=== PATIENT | female | born 1985 | race Hispanic/Latino ===

== ENCOUNTER 2020-07-25 09:49 | Emergency (ER) | payer BC ==
[~2020-07-25] VITALS: Ht 162.6 cm; Wt 122.5 kg
--- NOTE | 2020-07-25 10:16 | NUR ---
DR. ALEXANDER IN TRIAGE EVALUATING PATIENT NEUROLOGICAL STATUS AND SPEAKING WITH PATIENT EXTENSIVELY ABOUT PLAN OF CARE.
--- NOTE | 2020-07-25 10:28 | Emergency Department Note ---
History of Present Illnes History of Present Illness Chief Complaint: Extremity Trauma/Pain History of Present Illness This is a 35 year old female X 5 DAYS INTERMITTENT TINGLING IN RIGHT UPPER EXT. TODAY, 5 1/2 HRS AGO BEGAN HAVING CONTINUOUS TINGLING TO RIGHT CHEEK. POSITIVE NAUSEA. DENIES ANY CHEST PAIN OR SHORTNESS OF BREATH. SHE DOES FEEL ANXIOUS AND HAS BEEN DOING BREATHING EXERICSE AND SOMETIMES IT WORKS. BP 135/100. SHE STARTED METOPROLOL 50MG DAILY, 5 DAYS AGO. DENIES TRAUMA, BUT DID STATE 1 WEEK AGO HER FATHER FROM A HEART ATTACK AND SHE DID CPR ON HIM APPROX 10 MIN. Historian: Patient Arrival Mode: Car Additional Treatment VIDEO ARCADE MANAGER: NONE Solar Thermal Installer Required: No Onset (how long ago): day(s) (5) Location: RIGHT ARM AND CHEEK - HAS RESOLVED CURRENTLY Quality: TINGLING Radiation: Reports non-radiation Severity: mild Timing of current episode: intermittent Progression: resolved Chronicity: new Context: Denies recent illness Relieving factors: none Exacerbating factors: none Associated symptoms: Reports other (ANXIOUS) Past Medical/Family History Physician Review I have reviewed the patient's past medical and family history. Any updates have been documented here. Past Medical History Recent Fever: No Clinical Suspicion of Infectio: No New/Unexplained Change in Ment: No Past Medical History: Hypertension Other Surgery: BREAST IMPLANTS Social History Smoking Cessation: Never Smoker Counseling Performed: No Alcohol Use: Daily Any Illegal Drug Use: No TB Exposure/Symptoms: No Physically hurt or threatened: No Family History Family history of heart diseas: No Other Last Tetanus: UTD Any Pre-Existing Lines (PICC,: No Review of Systems Review of Systems Constitutional: Reports no symptoms EENTM: Reports no symptoms Cardiovascular: Reports other (SAW PCP FOR TACHYCARDIA 5 D AGO - METOPROLOL STARTED) Respiratory: Reports no symptoms Gastrointestinal: Reports no symptoms Genitourinary: Reports no symptoms Musculoskeletal: Reports no symptoms Integumentary: Reports no symptoms Neurological: Reports as per HPI, Reports paresthesia Psychological: Reports no symptoms Endocrine: Reports no symptoms Hematological/Lymphatic: Reports no symptoms Physical Exam Related Data Allergies: Coded Allergies: No Known Allergies (Unverified , 07/25/20) Triage Vital Signs Vital Signs Date Time Temp Pulse Resp B/P (MAP) Pulse Ox O2 Delivery O2 Flow Rate FiO2 07/25/20 09:56 97.9 76 18 135/100 99 Room Air Vital signs reviewed: Yes Physical Exam CONSTITUTIONAL Constitutional: Present well-developed, Present well-nourished HENT HENT: Present normocephalic, Present atraumatic, Present oropharynx clear/mois t, Present nose normal HENT L/R: Present left ext ear normal, Present right ext ear normal EYES Eyes: Reports PERRL, Reports conjunctivae normal NECK Neck: Present ROM normal PULMONARY Pulmonary: Present effort normal, Present breath sounds normal CARDIOVASCULAR Cardiovascular: Present regular rhythm, Present heart sounds normal, Present capillary refill normal, Present normal rate GASTROINTESTINAL Abdominal: Present soft, Present nontender, Present bowel sounds normal GENITOURINARY Genitourinary: Present exam deferred SKIN Skin: Present warm, Present dry MUSCULOSKELETAL Musculoskeletal: Present ROM normal NEUROLOGICAL Neurological: Present alert, Present oriented x 3, Present DTRs normal, Present no gross motor or sensory deficits; Absent cranial nerve deficit, Absent sensory deficit, Absent abnormal coordination, Absent abnormal gait, Absent weakness PSYCHOLOGICAL Psychological: Present mood/affect normal, Present judgement normal Assessment & Plan Medical Decision Making MDM PT ANXIOUS DUE TO 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 SAW PCP 5 DAYS AGO - LABS INCLUDING HGB A1C, CBC, CHEM, TSH, UA ALL NORMAL, EXAM COMPLETELY NORMAL. NO SI/HI, HAS GOOD SUPPORT AT HOME AND IN AREA Reassessment Reassessment I REASSURED PT THAT SHE IS NOT HAVING A STROKE AND SHE WAS QUITE RELIEVED. SHE IS HAVING INSOMNIA, WAKES UP SEVERAL TIMES A NIGHT FROM N[place]ES DUE TO INCIDENT - WILL GIVE HYDROXYZINE PRN QHS TO HELP, ADVISED LIGHT EXERCISE TO HELP WITH STRESS AND DRINKING PLENTY OF FLUIDS, F/U PCP Assessment & Plan Final Impression: (1) Anxiety (2) Insomnia Last Vital Signs Date Time Temp Pulse Resp B/P (MAP) Pulse Ox O2 Delivery O2 Flow Rate FiO2 07/25/20 09:56 97.9 76 18 135/100 99 Room Air Home Meds No Active Prescriptions or Reported Meds YARI ALEXANDER MD Jul 25, 2020 10:28
--- OUTSIDE RECORDS SUMMARY | 2020-07-25 10:28 | XMS REPORT | Clinical Summary ---
Author Author [facility] Organization [facility] Address Unknown Phone Unavailable Care Team Providers Care Wheel Assembler Name Role Phone Asked, No Pcp PCP Unavailable Allergies Comments Active Allergy Reactions Severity Noted Date No Known Drug Allergies 09/26/2016 Medications End Date Status Medication Sig Dispensed Refills Start Date Active azithromycin (ZITHROMAX) 5 250 MG tablet 6 Active cephalexin (KEFLEX) 500 0 MG capsule 7 Active desoximetasone (TOPICORT) 0 0.05 % cream 7 Active Problems Problem Noted Date Calculus of kidney 09/26/2016 Migraine 09/26/2016 Medical History Medical History Date Comments Kidney stone 09/11/2010 Herpes 09/11/2011 Calculus of kidney 09/26/2016 Migraine 09/26/2016 Family History Medical History Relation Name Comments Colon cancer Maternal Grandmother Relation Name Status Comments Maternal Grandmother Social History Date Tobacco Use Types Packs/Day Years Used Never Smoker Tobacco Cessation: Counseling Given: No Drinks/Week oz/Week Comments Alcohol Use 2 Shots of liquor Yes Sex Assigned at Date Recorded Not on file Last Filed Vital Signs Not on file Plan of Treatment Health Maintenance Due Date Last Done Comments CERVICAL CANCER SCREENING 2004 INFLUENZA VACCINE 04/11/2020 07/12/2015 Results Not on fileafter 07/25/2019 Insurance Type Payer Benefit Subscriber ID Effective Phone Address Plan / Dates Group PPO BCBS BCBS [id number] TONA resnadia PPO/TAQUERIA ERWIN PPO Advance Directives For more information, please contact: [phone] Patient Weight Inspector Explanation Type Date Recorded Advance Directives, Living Will and Medical Power of Surgical Supply Assistant
--- OUTSIDE RECORDS SUMMARY | 2020-07-25 10:29 | XMS REPORT | Continuity of Care Document ---
Author Author [facility] t Organization [facility] Address [address] [place] [address] Phone Unavailable Care Team Providers Care Gas Appliance Servicer Name Role Phone HELD, I UNIQUE PCP Unavailable THOMAS ISSA, LISHA Attphys Unavailable Thomas Issa RN, Lisha Attphys Unavailable Payers Payer Name Policy Type Policy Number Effective Date Expiration Date S ource [place] POS [id number] 2014 00:00:00 Problems Condition Name Condition Details Condition Category Status Onset Date Resolution Date Last Treatment Date Treating Clinician Comments Source Body mass index 40+ - severely obese Body Mass Index 40+ - S everely Obese Problem Active 2020-03-25 00:00:00 [facility] Morbid obesity Morbid Obesity Problem Active 2020-03-18 00:00:00 [facility] Calculus of kidney Calculus of kidney Disease Active 2016-09-26 00:00:0 0 Ramiro Lazaro Migraine Migraine Disease Active 2016-09-26 00:00:00 Ramiro Lazaro Kidney stone Kidney Stone Problem Active 2014-09-11 00:00:00 [facility] Allergies, Adverse Reactions, Alerts This patient has no known allergies or adverse reactions. Family History Family Member Diagnosis Comments Start Date Stop Date Source Maternal grandmother Colon cancer [facility] Lazaro Social History Social Habit Start Date Stop Date Quantity Comments Source Sex Assigned At MD Orozco Alcohol intake 2016-09-26 00:00:00 2016-09-26 00:00:00 Current drinker of alcohol (finding) Ramiro Lazaro Smoking Status Start Date Stop Date Source Never smoker [facility]amiro [facility] Medications Ordered Medication Name Filled Medication Name Start Date Stop Da te Current Medication? Ordering Clinician Indication Dosage Frequency Signature (SIG) Comments Components Source desoximetasone (TOPICORT) 0.05 % cream 2016-09-23 00:00:00 Yes Ramiro Lazaro cephalexin (KEFLEX) 500 MG capsule 2016-09-21 00:00:00 Yes Ramiro Lazaro azithromycin (ZITHROMAX) 250 MG tablet 2016-08-17 00:00:00 Yes Ramiro Isabelist Flucelvax Quad (PF) 60 mcg (15 mcg x 4)/0.5 mL IM syringe Flucelvax Quad (PF) 60 mcg (15 mcg x 4)/0.5 mL IM syringe No Flucelvax Quad (PF) 60 mcg (15 mcg x 4)/0.5 mL IM syringe [facility] metoprolol succinate ER 50 mg tablet,ext ended release 24 hr Take 1 tablet every day by oral route for 30 days. metoprolol succinate ER 50 mg tablet,ext ended release 24 hr Take 1 tablet every day by oral route for 30 days. No 1 Q1D metoprolol succinate ER 50 mg tablet,ext ended release 24 hr Take 1 tablet every day by oral route for 30 days. Cristhian odom [facility] Retin-A Micro Pump 0.08 % topical gel Ap ply 1 application every week by topical route for 30 days. Retin-A Micro Pump 0.08 % topical gel Ap ply 1 application every week by topical route for 30 days. No Retin-A Micro Pump 0.08 % topical gel Apply 1 application every week by topical route for 30 days. [facility] Vitamin D3 5000 iu Vitamin D3 5000 iu No Vi tamin D3 5000 iu [facility] Immunizations Ordered Immunization Name Filled Immunization Name Date Status Comments Source influenza, injectable, quadrivalent influenza, injectable, q uadrivalent 2020-06-27 00:00:00 [facility] 2020-03-18 11:59:00 Completed Kg bower [facility] influenza, injectable, quadrivalent influenza, injectable, q uadrivalent 2019-06-11 00:00:00 [facility] Vital Signs Vital Name Observation Time Observation Value Comments Source BP Diastolic 2020-07-22 00:00:00 80 mm[Hg] [facility] Height 2020-07-22 00:00:00 64 [in_i] [facility] BMI (Body Mass Index) 2020-07-22 00:00:00 51.8 kg/m2 [facility] BP Systolic 2020-07-22 00:00:00 119 mm[Hg] [facility] Body Weight 2020-07-22 00:00:00 301.8 [lb_av] [facility] BP Diastolic 2020-03-18 00:00:00 84 mm[Hg] [facility] Height 2020-03-18 00:00:00 64 [in_i] [facility] BMI (Body Mass Index) 2020-03-18 00:00:00 53.5 kg/m2 [facility] BP Systolic 2020-03-18 00:00:00 126 mm[Hg] [facility] Body Weight 2020-03-18 00:00:00 311.8 [lb_av] [facility] Systolic blood pressure 2020-03-11 15:44:00 131 mm[Hg] MD Orozco Diastolic blood pressure 2020-03-11 15:44:00 87 mm[Hg] MD Orozco Heart rate 2020-03-11 15:44:00 87 /min MD Casillas son Body temperature 2020-03-11 15:44:00 36.56 Zahra MD Abhinav murrietaon Respiratory rate 2020-03-11 15:44:00 18 /min MD Abhinav oakley Oxygen saturation in Arterial blood by Pulse oximetry 03-11 15:44:00 100 /min MD Orozco Procedures Procedure Date / Time Performed Performing Clinician Sourc e electrocardiogram 2020-07-22 00:00:00 [facility] HC 2019-NCOV COVID-19 2020-03-11 15:50:00 Nu Hawkins MD Breast Surgery 2007-09-11 00:00:00 [facility] Tonsillectomy 1997-09-11 00:00:00 [facility] Plan of Care Planned Activity Planned Date Details Comments Source Diagnostic Test Pending 2020-07-22 00:00:00 CBC w/ auto diff [code = CBC w/ auto diff] [facility] Diagnostic Test Pending 2020-07-22 00:00:00 CMP, serum or pl asma [code = CMP, serum or plasma] [facility] Diagnostic Test Pending 2020-07-22 00:00:00 TSH, serum or pl asma [code = TSH, serum or plasma] [facility] Diagnostic Test Pending 2020-07-22 00:00:00 urinalysis, dips tick [code = urinalysis, dipstick] [facility] Diagnostic Test Pending 2020-07-22 00:00:00 lipid panel, ser um [code = lipid panel, serum] [facility] Diagnostic Test Pending 2020-07-22 00:00:00 HbA1c (hemoglobi n A1c), blood [code = HbA1c (hemoglobin A1c), blood] [facility] Future Scheduled Test 2020-04-11 00:00:00 INFLUENZA VACCINE [code = INFLUENZA VACCINE] [facility] Future Scheduled Test 2004 00:00:00 Screening for chetna gnant neoplasm of cervix (procedure) [code = 754892981] [facility] Encounters Start Date/Time End Date/Time Encounter Type Admission Type Attendi [facility] Care Department Encounter ID Source 2020-07-22 00:00:00 2020-07-22 00:00:00 Sammy mack MD: [id number], [address], [place] [address], Ph. [facility]ER[facility] [id number] [facility] 2020-03-18 00:00:00 2020-03-18 00:00:00 Sammy mack MD: [id number], [place] [address], Ph. [facility] [id number] [facility] 2020-03-11 10:35:14 2020-03-11 10:53:27 Outpatient LISHA REIS MDA, MDA [id number] MD Orozco 2020-03-11 00:00:00 2020-03-11 00:00:00 Outpatient NETTE PERDUE [id number] MD Orozco 2020-01-16 07:15:00 2020-01-16 07:15:[address] Results Test Description Test Time Test Comments Results Result Comments Source Urinalysis macro (dipstick) panel - Urine 2020-07-22 13:05:0 0 Test Item Color Color (test code = Color Color) yellow Color Appearance (test code = Color Appearance) clear Color Glucose (test code = Color Glucose) negative Color Bilirubin (test code = Color Bilirubin) negative Color Ketones (test code = Color Ketones) trace Color Specific [place] (test code = Color Specific [place]) 1.025 Color Blood (test code = Color Blood) trace Color PH (test code = Color PH) 7.0 Color Protein (test code = Color Protein) negative Color Urobilinogen (test code = Color Urobilinogen) 0.2 Color Nitrites (test code = Color Nitrites) negative Color Leukocytes (test code = Color Leukocytes) negative [facility] W Auto Differential panel - [id number] 12:07:00 * Test Item Value Reference Range Interpretation Comments WBC (test code = WBC) 9.92 x10*3/?L 3.98-10.04 RBC (test code = RBC) 4.65 10*12/L 3.93-5.22 hemoglobin (test code = hemoglobin) 12.00 g/dL 11.20-15.70 hematocrit (test code = hematocrit) 39.1 % 34.1-44.9 MCV (test code = MCV) 84.1 fL 80.0-100.0 MCH (test code = MCH) 25.8 pg 25.6-32.2 MCHC (test code = MCHC) 30.7 g/dL 32.2-35.5 L RDW-SD (test code = RDW-SD) 49.6 fL 36.4-46.3 H platelet count (test code = platelet count) 312.0 k/uL 182.0-369. 0 MPV (test code = MPV) 10.3 fL 7.5-11.5 neut% (test code = neut%) 56.7 % 34.0-71.1 lymph% (test code = lymph%) 34.9 % 19.3-51.7 mon% (test code = mon%) 5.9 % 4.7-12.5 eos% (test code = eos%) 1.8 % 0.7-5.8 baso% (test code = baso%) 0.7 % 0.1-1.2 neut# (test code = neut#) 5.6 x10*3/?L 1.6-6.1 lymph# (test code = lymph#) 3.5 x10*3/?L 1.2-3.7 mon# (test code = mon#) 0.6 x10*3/?L 0.2-0.9 eos# (test code = eos#) 0.18 x10*3/?L 0.04-0.36 baso# (test code = baso#) 0.07 x10*3/?L 0.01-0.08 [facility] RNA [Units/volume] (viral load) in Serum or Plasma by DODIE with probe [id number] 08:55:00* Test Item Value Reference Range Interpretation Comments hepatitis C antibody (test code = hepatitis C antibody) non- reactive non-reactive signal to cut-off (test code = signal to cut-off) 0.03 <1.0 0 [facility] 1999 [facility] - Serum or Plasma 2020-03-18 17:49:00* Test Item Value Reference Range Interpretation Comments ALT (test code = ALT) 25 U/L 0-55 AST (test code = AST) 17 U/L 5-34 BUN (test code = BUN) 9.7 mg/dL 7.0-25.0 alk phos (test code = alk phos) 74 unit/L 40-150 glucose (test code = glucose) 90 mg/dL 70-99 albumin (test code = albumin) 3.5 g/dL 3.4-5.1 creatinine (test code = creatinine) 0.58 mg/dL 0.57-1.11 eGFR non- (test code = eGFR non-) > 60 total bilirubin (test code = total bilirubin) 0.3 mg/dL 0.2-1.2 eGFR - (test code = eGFR - ) >60 sodium (test code = sodium) 140 mEq/L 135-145 potassium (test code = potassium) 4.1 mEq/L 3.5-5.3 chloride (test code = chloride) 107 mmol/L 98-110 total protein (test code = total protein) 6.9 g/dL 6.1-8.2 calcium (test code = calcium) 8.2 mg/dL 8.6-10.4 L CO2 (test code = CO2) 23.7 mmol/L 20.0-32.0 anion gap (test code = anion gap) 9 calc [facility] - Serum or [id number] 17:49:00* Test Item Value Reference Range Interpretation Comments HDL (test code = HDL) 50 mg/dL triglyceride (test code = triglyceride) 67 mg/dL <150 VLDL (calculated) (test code = VLDL (calculated)) 13 mg/dL cholesterol/HDL ratio (test code = cholesterol/HDL ratio) 3.5 mg/dL non-HDL cholesterol (calculated) (test code = non-HDL cholesterol (calculated)) 126 mg/dL <160 cholesterol (test code = cholesterol) 176 mg/dL <200 Cholesterol in LDL [Mass/volume] in Serum or Plasma (t est code = 2089-1) 113 mg/dL <130 [facility] [Units/volume] in Serum or [id number] 17:49:00* Test Item Value Reference Range Interpretation Comments TSH (test code = TSH) 1.970 uIU/mL 0.350-4.940 [facility] A[facility]c/Hemoglobin.total in [id number] 16:10:00* Test Item Value Reference Range Interpretation Comments Hemoglobin A1c/Hemoglobin.total in Blood (test code = 4548-4) 5.6 % 1.0-5.7 average blood glucose (calculated) (test code = average blood glucose (calculated)) 114 mg/dL [facility] Hospital[facility]ysis macro (dipstick) panel - [id number] 13:04:00* Test Item Value Reference Range Interpretation Comments Color Color (test code = Color Color) yellow Color Appearance (test code = Color Appearance) clear Color Glucose (test code = Color Glucose) negative Color Bilirubin (test code = Color Bilirubin) negative Color Ketones (test code = Color Ketones) negative Color Specific [place] (test code = Color Specific [place]) 1.025 Color Blood (test code = Color Blood) negative Color PH (test code = Color PH) 7.0 Color Protein (test code = Color Protein) negative Color Urobilinogen (test code = Color Urobilinogen) 0.2 Color Nitrites (test code = Color Nitrites) negative Color Leukocytes (test code = Color Leukocytes) negative [facility]MD COVID-19 (SARS-CoV-2) PCR [id number] 06:06:38* Test Item Value Reference Range Interpretation Comments COVID19 SARS Result (test code = 22707-2) Not Detected Not Detected COVID19 SARS Interpretation (test code = 83908) SARS-C oV-2 NOT Detected. Reference Range: Not Detected Methodology: The [employer] RealTime SARS-CoV-2 assay is a qualitative real-time reverse surg tech polymerase chain reaction (nitro man- PCR) test to detect RNA from SARS-CoV-2 in nasal, nasopharyngeal and oropharyngeal swabs from patients with signs and symptoms of infection who are suspected of COVID-19 by their health care provider. The [employer] RealTime SARS-CoV-2 performed on the [employer] System is a dual target assay with primers and probes for the RdRp and N genes. Results must be interpreted within the context of all relevant clinical and laboratory findings, and epidemiological risk factors. Positive results are indicative of the presence of SARS-CoV-2 RNA; clinical correlation with patient history and other diagnostic information is necessary to determine patient infection status. Positive results do not rule out bacterial infection or co-infection with other viruses. Negative results do not preclude SARS-CoV-2 infection and should not be used as the sole basis for patient management decisions. The [employer] RealTime SARS-CoV-2 assay is for in vitro diagnostic use under FDA Emergency Use Authorization only. Testing is limited to laboratories certified under the Clinical Laboratory Improvement Amendments of 1988 (CLIA), 42U.S.C. 263a, to perform high complexity tests. The Test was performed by the CLIA-certified, high-complexity Molecular Diagnostics Laboratory ([facility]) at [facility] under the Food and Drug Administration (FDA) s Emergency Use Authorization. Factsheet for patients: https://www.[facility].org/AbbottFactSheetPatientsFactsheet for healthcare providers: https://www.[facility].org/AbbottFactSheetHCP Test performed by:[facility] [id number] [place] [address] GASTON (test code = GASTON) Patient is symptomatic and h as the following indication:- >Sore Throat MD Orozco
== END 2020-07-25 10:27 | disposition home or self-care (01) ==
LOC: ER 10:00
DX: F41.9 Anxiety disorder, unspecified (principal); G47.00 Insomnia, unspecified; I10 Essential (primary) hypertension
CPT/HCPCS: 99282